=== PATIENT | female | born 1965 | race African-American/Black ===

== ENCOUNTER 2020-03-16 12:40 | Emergency (ER) | payer MEDICAID, OTHER ==
[~2020-03-16] VITALS: Ht 160 cm; Wt 102.0 kg
[2020-03-16] MEDS ORDERED: ISOS60TA4 PO (13:01)
[2020-03-16] MEDS ORDERED: DOXA2TAB2 PO (13:01)
[2020-03-16] MEDS ORDERED: ATOR-2 PO (13:01)
[2020-03-16] MEDS ORDERED: ASPI-1158 PO (13:01)
[2020-03-16] MEDS ORDERED: METO100T16 PO (13:01)
[2020-03-16] MEDS ORDERED: HYDR25TA PO (13:01)
[2020-03-16] MEDS ORDERED: LOSA100T32 PO (13:01)
[2020-03-16] MEDS ORDERED: HYDR-4135 PO (13:01)
[2020-03-16] MEDS ORDERED: CEFTRIAXONE 1 G PREMIX 50 ML IV ONE (13:45)
[2020-03-16 15:47] LABS: CHLORIDE 108 mEq/L (98-107)
[2020-03-16 15:51] LABS: BASOPHILS % 0.5 % (0.0-2.0); EOSINOPHILS % 0.5 % (0.0-5.0); HEMATOCRIT. 46.9 % (36.0-48.0); HEMOGLOBIN. 15.8 g/dL (12.0-16.0); LYMPHOCYTES % 15.4 % (20.0-50.0); MEAN CORPUSCULAR HEMOGLOBIN 29.4 pg (28.0-32.0); MEAN CORPUSCULAR VOLUME 87.3 fL (81.0-99.0); MEAN PLATELET VOLUME 8.7 fl (7.4-10.4); NEUTROPHILS % 76.6 % (40.0-76.0); PLATELET 268 x1000/uL (130-400); RED BLOOD CELL COUNT 5.38 mill/uL (4.2-5.4); RED CELL DISTRIBUTION WIDTH 14.3 % (11.6-14.6)
[2020-03-16 15:52] LABS: ETHANOL BLOOD < 10 mg/dL
[2020-03-16] MEDS ORDERED: IOHEXOL-350 100 ML BOTTLE ONE (16:20)
[2020-03-16] MEDS ORDERED: CLONIDINE 0.1MG TABLET PO PRN (17:00)
[2020-03-16] MEDS ORDERED: DIPHENHYDRAMINE 50MG/ML VIAL IV PRN (17:00)
[2020-03-16] MEDS ORDERED: ACETAMINOPHEN 325MG TABLET PO PRN (17:00)
[2020-03-16] MEDS ORDERED: ONDANSETRON HCL 4MG/2ML INJ IV PRN (17:00)
[2020-03-16] MEDS ORDERED: CEFTRIAXONE 1 G PREMIX 50 ML IV SCH (17:00)
[2020-03-16 17:06] LABS: CLARITY URINE CLOUDY (CLEAR); COLOR URINE YELLOW (YELLOW); KETONES URINE NEGATIVE (NEGATIVE); LEUKOCYTE ESTERASE URINE 1+ (NEGATIVE); NITRITE URINE POSITIVE (NEGATIVE); OCCULT BLOOD URINE NEGATIVE (NEGATIVE); PROTEIN URINE TRACE (NEGATIVE); SPECIFIC GRAVITY URINE 1.019 (1.005-1.030)
[2020-03-16 17:17] LABS: CANNABINOID URINE SCREEN NEGATIVE (NEGATIVE); PHENCYCLIDINE URINE SCREEN NEGATIVE (NEGATIVE)
[2020-03-16 17:18] LABS: *AMPHETAMINES SCREEN URINE NEGATIVE (NEGATIVE); *BARBITURATES SCREEN URINE NEGATIVE (NEGATIVE); *BENZODIAZEPINES SCREEN URINE NEGATIVE (NEGATIVE); *COCAINE SCREEN URINE NEGATIVE (NEGATIVE); METHADONE URINE SCREEN NEGATIVE (NEGATIVE); OPIATES URINE SCREEN NEGATIVE (NEGATIVE)
[2020-03-16 17:24] VITALS: BP 166/94
[2020-03-16] MEDS ORDERED: AZITHROMYCIN 500 MG in DEXT 5% WATER 250 ML IV SCH (18:00)
[2020-03-17] MEDS ORDERED: CEFTRIAXONE 1,000 MG in DEXTROSE 5% WATER 50 ML IV SCH (14:00)
== END 2020-03-16 19:29 | disposition home or self-care (01) ==
LOC: EDBD 12:40 → ER 12:40 → EDBEDREQ 16:29 → EDBEDREQTM 16:29 → ER 19:29 → CANBEDREQ 03-17 06:21
DX: U07.1 COVID-19 (principal); J43.9 Emphysema, unspecified; R19.09 Other intra-abdominal and pelvic swelling, mass and lump; I10 Essential (primary) hypertension
CPT/HCPCS: 36415; 70496; 70498; 71045; 80053; 80076; 80305; 80320; 81003; 82728; 82962; 83605; 83615; 84145; 84484; 85025; 85379; 86141; 87040; 87077; 87086; 87186; 93005; 96365; 96366; 99285; C9803; J0456; J0696; J7060; Q9967; U0003; G0480

== ENCOUNTER → 2020-03-17 | Emergency (ER) | payer MEDICAID ==
[~2020-03-17] MED LIST: ASPI-1158 PO; ATOR-2 PO; DOXA2TAB2 PO; HYDR-4135 PO; HYDR25TA PO; ISOS60TA4 PO; LOSA100T32 PO; METO100T16 PO
== END ==
LOC: ER 15:08
DX: Z53.21 Procedure and treatment not carried out due to patient leaving prior to being seen by health care provider (principal)